=== PATIENT | female | born 1970 | race Two or more races ===

== ENCOUNTER 2024-11-08 20:07 | Emergency (ER) | payer MEDICAID, SELFPAY ==
[2024-11-08 20:18] VITALS: BP 136/92; PULSE 87; RESP 19; TEMP 36.9; O2SAT 98; BMI 57.9
[2024-11-08 20:21] VITALS: PULSE 93; RESP 20; O2SAT 98
--- NOTE | 2024-11-08 20:35 | XR_ITS ---
Examination: Knee, left , 3 views Technique: Knee AP, lateral, oblique 3 views Date and time of exam: 2025 hrs. Indications: Injury to the knee today, knee pain. Findings: No acute fracture No dislocation No foreign body Impression: No acute fracture
--- NOTE | 2024-11-08 20:37 | EDNOTE_ITS ---
Lower Extremity Injury RME/HPI General Chief Complaint: Extremity Injury, Lower Stated Complaint: KNEE PAIN Time Seen by Provider: 11/08/24 20:25 Source: patient Arrival date/time: 11/08/24 20:07 54-year-old female with a history of type 2 diabetes, hypertension presents to the emergency room with a chief complaint of left knee pain and tenderness after a fall that occurred 1 hour ago. Mode of arrival: ambulatory Limitations: no limitations Related Data Home Medications ?Medication ?Instructions ?Recorded ?Confirmed losartan 50 mg tablet 1 tab PO BID 05/28/22 10/01/22 metformin 500 mg tablet 500 mg PO BID 05/28/22 10/01/22 metoprolol tartrate 50 mg tablet 1 tab PO HS 05/28/22 10/01/22 cholecalciferol (vitamin D3) 50 50 mcg PO QDAY 07/30/22 09/30/22 mcg (2,000 unit) capsule (Vitamin D3) Previous Rx's ?Medication ?Instructions ?Recorded ciprofloxacin HCl 500 mg tablet 500 mg PO BID #14 tabs 10/01/22 (Cipro) hydrocodone 5 mg-acetaminophen 325 1 tab PO Q6H PRN pain #20 tabs 10/01/22 mg tablet ibuprofen 600 mg tablet 600 mg PO Q8H PRN fever or pain 11/08/24 #20 tabs Allergies Allergy/AdvReac Type Severity Reaction Status Date / Time No Known Allergies Allergy Verified 10/01/22 09:52 Review of Systems Review of Systems Systems Reviewed: All systems reviewed, normal except as documented Constitutional Constitutional: Reports system reviewed and no additional complaints, except as documented, Denies fatigue, Denies fever(s), Denies headache(s) and Denies weakness Eyes Eyes: Reports system reviewed and no additional complaints, except as documented, Denies blurry vision and Denies change in vision ENT Ears, Nose, Mouth, and Throat: Reports system reviewed and no additional complaints, except as documented, Denies otalgia, Denies headache(s), Denies nasal congestion, Denies throat swelling and Denies vertigo Cardiovascular Cardiovascular: Reports system reviewed and no additional complaints, except as documented, Denies chest pain, Denies dyspnea and Denies dyspnea on exertion Respiratory Respiratory: Reports system reviewed and no additional complaints, except as documented, Denies chest congestion, Denies cough, Denies dyspnea, Denies dyspnea on exertion and Denies wheezing Gastrointestinal Gastrointestinal: Reports system reviewed and no additional complaints, except as documented, Denies abdominal pain, Denies cramping, Denies nausea and Denies vomiting Genitourinary Genitourinary: Reports system reviewed and no additional complaints, except as documented Musculoskeletal Musculoskeletal: Reports system reviewed and no additional complaints, except as documented, Reports abnormal gait, Reports arthralgias, Denies back pain, Reports joint swelling and Reports limited range of motion Integumentary/Breasts Skin/Breast: Reports system reviewed and no additional complaints, except as documented and Denies wounds Neurologic Neurologic: Reports system reviewed and no additional complaints, except as documented, Reports abnormal gait, Denies confusion, Denies headache(s), Denies lack of coordination, Denies vertigo and Denies weakness Psychiatric Psychiatric: Reports system reviewed and no additional complaints, except as documented, Denies anxiety, Denies confusion, Denies depression, Denies paranoia, Denies suicidal ideation and Denies tactile hallucinations Endocrine Endocrine: Reports system reviewed and no additional complaints, except as documented and Denies fatigue Hematologic/Lymphatic Hematologic/Lymphatic: Reports system reviewed and no additional complaints, except as documented and Denies lymphadenopathy Allergic/Immunologic Allergic/Immunologic: Reports system reviewed and no additional complaints, except as documented, Denies throat swelling, Denies urticaria and Denies wheezing Past Medical History Past Medical History NEUROLOGIC: Positive Neurological Disorders and Migraine (ER VISIT FOR PAIN); Negative Seizures or Head Trauma CARDIAC: Positive Cardiac Disorders, Hypercholesterolemia (TAKES MED) and Hypertension (TAKES MED); Negative Congestive Heart Failure, Edema, Cellulitis or Varicose Veins RESPIRATORY: Negative Chronic Obstructive Pulmonary Disease (COPD), Asthma, Pneumonia, Tuberculosis or Sleep Apnea GASTROINTESTINAL: Positive Gastrointestinal Disorders, Gall Bladder Disease (NO PROC) and Obesity; Negative Hepatitis GENITOURINARY: Positive Genitourinary Disorders and Kidney Stones (FOR THIS PROC (HAD X2 PROC)); Negative Renal Disease REPRODUCTIVE: Positive Previous Pregnancies (X5) MUSCULOSKELETAL: Negative Musculoskeletal Disorders ENT: Negative Head Trauma ENDOCRINE: Positive Endocrine Disorders and Diabetes Mellitus Type 2 (TAKES PO MED); Negative Diabetes Mellitus Type 1 HEMATOLOGIC: Negative Blood Disorders or Sickle Cell Disease OTHER HISTORY: Negative Hospitalization, Autoimmune Disease, Shingles, Falls, Blood Transfusions, Blood Transfusion Reaction, Anesthesia Reactions, Organ Transplant, Chemotherapy, Radiation Therapy, MRSA, Chicken Pox, Measles, Mumps or Cancer Family History FAMILY HISTORY: Positive Family Psychiatric Problems (SISTER (DEPRESSION,ANXIETY)), Family Respiratory Disorders (SISTER (ASTHMA)), Family Cardiac Disorders (FATHER (FL)MOTHER ,BROTHER,SISTER (HTN)), Family Gastrointestinal Problems (SISTER (GALL BLADDER)), Family Cancer (FATHER (PROSTATE)) and Family Surgery (SISTERS,FATHER,MOTHER,BROTHER); Negative Family Anesthesia Reaction Surgical History SURGICAL: Positive Hysterectomy (KELY WITH CHANNING SALPING), Tubal Ligation and Section (X 4); Negative Cardiac Surgery, Pacemaker, Endocrine Surgery, Ear Surgery, Nephrectomy, Joint Replacement or Organ Transplant Social History SMOKING STATUS: Never smoker ED Exam General Limitations: Present no limitations General appearance: Present alert and in no apparent distress Head Head exam: Present atraumatic Eye Eye exam: Present normal appearance, PERRL and EOMI ENT ENT exam: Present normal exam, normal oropharynx and mucous membranes moist Neck Neck exam: Present normal inspection, full ROM and trachea midline Chest Chest inspection: Present normal inspection and symmetric chest wall rise Respiratory Respiratory exam: Present normal lung sounds bilaterally Cardiovascular Cardiovascular exam: Present regular rate, normal rhythm and normal heart sounds Abdominal Exam Abdominal exam: Present soft and normal bowel sounds Extremities Exam Extremities exam: Present normal inspection and full ROM Expanded Lower Extremity Exam Hip/Pelvis exam: Present normal inspection Upper leg exam: Present normal inspection Knee exam: Present tenderness, swelling and abrasion; Absent full ROM Gait: unable to bear weight Back Exam Back exam: Present normal inspection and full ROM Neurological Exam Neurological exam: Present alert, oriented X3 and CN II-XII intact Psychiatric Psychiatric exam: Present normal affect and normal mood Skin Skin exam: Present warm, dry, intact and normal color Course Quality Measures none Orders Category Date Time Status javad wrap [Splint / Immobilizer] STAT Care 11/08/24 20:38 Completed XR knee LT 3V Stat Exams 11/08/24 20:35 Completed Ketorolac Inj [Toradol Inj] Med 11/08/24 20:35 Discontinued 30 mg IM X1 ONE Vital Signs Vital signs: Vital Signs Temperature 98.4 F 11/08/24 20:18 Pulse Rate 87 11/08/24 20:18 Respiratory Rate 19 11/08/24 20:18 Blood Pressure 136/92 H 11/08/24 20:18 Pulse Oximetry (%) 98 11/08/24 20:18 Oxygen Delivery Method Room Air 11/08/24 20:18 O2 saturation 98% within normal limits Extremity Injury, Lower MDM Narrative MDM Narrative:: 54-year-old female with a history of type 2 diabetes, hypertension presents to the emergency room with a chief complaint of left knee pain and tenderness after a fall that occurred 1 hour ago. Clinically the patient appears nontoxic and in no apparent distress. Physical examination shows pain, tenderness, swelling to the left knee with palpation. Meera's test was negative. Patient is able to stand up but states there is a lot of pain when she takes steps. X-ray was completed and was negative for any acute fracture. The patient has a small abrasion to the left knee and wound care was completed. Patient was discharged and educated to follow-up with primary care provider and was educated that if the signs and symptoms continue she will need to follow-up for an outpatient MRI as there can be some ligament damage. Patient was discharged and educated to follow-up with primary care provider return to the emergency room for any evidence of worsening signs or symptoms Patient data External records reviewed:: [facility] previous records Clinical information provided by:: patient Social determinants that could affect healthcare access:: none Patient has the following chronic illnesses:: No chronic illness How is presenting disease/condition affected by chronic disease/condition?: no chronic disease Evaluation data The following diagnostics were reviewed and interpreted by me:: lab results and radiology exam(s) Lab and/or radiology exams considered but not ordered:: Labs and radiology exams considered and ordered Interpretation Summary: X-ray left knee-no acute fracture Medications / Prescriptions Medications or Prescriptions considered but not ordered:: Medication given Medication administrations:: Medication Administration History Discontinued Medications Ketorolac Tromethamine (Ketorolac Inj 60 Mg/2 Ml Vial) 30 mg IM X1 ONE Stop: 11/08/24 20:36 Last Admin: 11/08/24 21:05 Dose: 30 mg Documented By: Medication given Consultations Consultation(s) initiated? (list below): No Diagnosis Extremity Injury, Lower Differential Diagnosis: other (Left knee sprain and strain/left knee fracture) Most likely diagnosis given after review of the tests above:: Left knee sprain and strain Admission Indicated Admission indicated?: not indicated Admission Request Was there a request for admission?: No Disposition Plan Disposition Plan: Discharge Discharge Attestation Discharge Attestation: The patient and all family members were given an opportunity to ask questions and understood the discharge instructions. Discharge instructions specifically effects, indications for sooner follow up or return to the emergency department, and the expected course of current diagnosis. Patient condition: Stable Discharge Plan Plan Patient Disposition: HOME (Self Care) Disposition Comment: Stable Prescriptions/Referrals Prescriptions/Med Rec: New ibuprofen 600 mg tablet 600 mg PO Q8H PRN (Reason: fever or pain) Qty: 20 0RF No Action losartan 50 mg tablet 1 tab PO BID Patient Comments: TOME YONI TABLETA POR V A ORAL DOS VECES AL D A metformin 500 mg Tablet 500 mg PO BID metoprolol tartrate 50 mg tablet 1 tab PO HS Patient Comments: TOME YONI TABLETA TODOS LOS D WITH FOOD cholecalciferol (vitamin D3) [Vitamin D3] 50 mcg (2,000 unit) Capsule 50 mcg PO QDAY hydrocodone-acetaminophen 5-325 mg tablet 1 tab PO Q6H MDD 4 PRN (Reason: pain) Qty: 20 0RF ciprofloxacin HCl [Cipro] 500 mg tablet 500 mg PO BID Qty: 14 0RF Referrals: Floyd Rahman MD [Primary Care Provider] - In 1 week Problem List Clinical Impression: Knee sprain Patient/Caregiver Discharge Instructions Education Materials: ED Knee Sprain Additional Instructions: Mela un seguimiento con escalante proveedor de atenci?n primaria en las pr?ximas 24 a 48 horas. Se complet? la radiograf?a de escalante rodilla izquierda y fue negativa para fractura aguda. Si hay evidencia de signos o s?ntomas que empeoran, regrese a la kj de emergencias de inmediato. Print Language: Dutch Stand Alone Forms: Nettie Award Info., Patient Portal Info Letter PA/CHEF'S ASSISTANT Supervising Physician PA/CHEF'S ASSISTANT Supervising Physician: Dr. Bauer
[2024-11-08] MEDS: KETOROLAC INJ 60 MG/2 ML VIAL 30 MG IM (21:05)
== END 2024-11-08 23:01 | disposition home or self-care (01) ==
PROVIDERS: Emergency Provider Emergency Medicine; PCP Family Medicine
DX: S83.92XA Sprain of unspecified site of left knee, initial encounter (principal); I10 Essential (primary) hypertension; W19.XXXA Unspecified fall, initial encounter; E11.9 Type 2 diabetes mellitus without complications
CPT/HCPCS: 73562; 96372; 99283; J1885

== ENCOUNTER → 2024-11-22 | Outpatient (CLI) | payer MEDICAID, SELFPAY ==
--- NOTE | 2024-11-22 17:00 | XR_ITS ---
Exam: MRI knee without contrast, left Date and time of exam: November 22, 2024 1730 hours INDICATIONS: Patient fell a few weeks ago with injury to the knee, knee pain Technique: Multiple axial, coronal, and sagittal sections on the knee have been obtained. T2-Weighted sagittal, fat-suppressed images, TR 3,500, TE 62, T2 weighted coronal fat-saturated images, TR 3,500, TE 62 Proton density sagittal sections, TR 1800, TE 31. T-1 weighted coronal images, TR 524, TE 13.0 Findings: Medial meniscus anterior horn is intact. Medial meniscus, body horizontal linear tear communicating inner margin. Posterior horn medial meniscus horizontal linear tear communicating inner margin. Lateral meniscus anterior horn is intact Lateral meniscus, body is intact Posterior horn lateral meniscus is intact Anterior cruciate ligament appears intact. Posterior cruciate ligament appears intact. Knee effusion is small. Quadriceps and patellar tendons appear intact. Significant prepatellar edema as well as fluid collection prepatellar at least 10 cm transverse dimension AP dimension 9 mm cephalocaudad dimension 5 cm There is no evidence of tendinosis. Inflammatory change or fracture of Hoffa's fat pad is not seen. Medial patellar facet demonstrates moderate thinning. Lateral patellar facet cartilage demonstrates moderate thinning. Trochlear cartilage demonstrates moderate thinning. Marrow signal increased in the lateral femoral condyle posteriorly. Medial collateral ligament appears intact. No meniscocapsular separation is seen. Illiotibial band and fibular collateral ligament are intact. Biceps femoris tendons appear intact. Medial femoral condylar articular cartilage demonstrates moderate thinning. Lateral femoral condylar articular cartilage demonstratesmoderate thinning. Tibial plateau cartilage demonstrates moderate thinning. Impression: Horizontal linear tears body and posterior horn medial meniscus Fluid collection prepatellar
== END | disposition home or self-care (01) ==
PROVIDERS: PCP Physician Assistant; Referring Provider Physician Assistant; Visit Provider Physician Assistant
DX: S83.242A Other tear of medial meniscus, current injury, left knee, initial encounter (principal); W19.XXXA Unspecified fall, initial encounter
CPT/HCPCS: 73721

== ENCOUNTER 2025-02-15 09:12 | Outpatient (AMB) | payer MEDICAID, SELFPAY ==
--- NOTE | 2025-02-15 09:34 | PD.ORTHCLVIS ---
Vital signs 02/15/25 09:35 Height 1.57 m Height Method Stated Weight 145.178 kg Weight Measurement Method Standing Scale BMI 58.8 BP 137/84 H Blood Pressure Source Automatic Cuff Blood Pressure Location Right Upper Arm Position Sitting Respiration 20 Pulse 80 Pulse Source Monitor Temp 96.9 F Temp Source Temporal Artery Scan Pulse Oximetry (%) 97 Oxygen Delivery Method Room Air Med/Allergies Allergies & Medications Allergies No Known Allergies Allergy (Verified 02/15/25 09:36) Medication Reconciliation losartan 50 mg tablet 1 tab PO BID 05/28/22 [History Confirmed 02/15/25] metoprolol tartrate 50 mg tablet 1 tab PO HS 05/28/22 [History Confirmed 02/15/25] tirzepatide 2.5 mg/0.5 mL subcutaneous pen injector (Mounjaro) 2.5 mg subcut QWEEK 02/15/25 [History Confirmed 02/15/25] Exam Exam Patient is in no acute distress and is cooperative with the examination today. Breathing is nonlabored. In no respiratory distress. Bilateral extremities were evaluated and demonstrates sensation intact to light touch. Palpable pedal pulses are present. No significant edema is present. Bilateral hips were examined. The patient has no pain with log roll of the hips. Internal rotation to 30 degrees and external rotation to 30 degrees is painless. Negative FADIR. The left knee was examined. The left knee is in varus alignment. Range of motion from 0-115 degrees. Knee is stable to varus and valgus as well as AP translation with <5mm. Patient has a negative McMurrays. There is no pain with patellofemoral compression and no crepitus noted. The knee is tender to palpation medially. The right knee was also examined. The right knee is in varus alignment. Range of motion from 0-120 degrees. Knee is stable to varus and valgus as well as AP translation with <5mm. Patient has a negative McMurrays. There is no pain with patellofemoral compression and no crepitus noted. The knee is tender to palpation medially. Assessment and Plan Problem List (1) Degenerative arthritis of knee, bilateral: Status: Acute Plan: Patient is a 54-year-old female with bilateral knee painA nd likely arthritis versus back pain. We discussed that her MRI demonstrates a posterior horn medial meniscus tear which is relatively normal for age. We would treat this nonoperatively with anti-inflammatories. I would like to see weightbearing x-rays. We also discussed weight loss in great detail Office Procedures GNS Level of Care Nursing/Assessment Patient Status: Established Patient Nursing Assessment/Reassesment: Medication Reconciliation, Update PMH in EMR and Vital Signs Coordination of Care: Complex Care and Chronic Disease 1-5, Education Complex Pt/Fam, Consent,records obtained, informed consent, Lab and Imaging orders, Results/Orders obtained and Staff clarify orders Special Needs: Language special needs Established Patient Charge Established Patient Point Assignment: 110 Established Patient Point Charge: EP Level 3 (80-115) MA Intake Visit Data Collection New Patient or Established: Established Patient (seen at 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 PCP or OBGYN visit in last 3 months: Yes Hx Now: No Do You Feel Safe at Home: Yes Authorities Contacted: N/A Questionairres Past Medical History Past Medical History Have you ever been diagnosed with any of the following: Neurological Problems Seizures: No Migraine: Yes (ER VISIT FOR PAIN) Head Trauma: No Cardiology Problems Hypercholesterolemia: Yes (TAKES MED) Congestive Heart Failure: No Edema: No Cellulitis: No Hypertension: Yes (TAKES MED) Varicose Veins: No Respiratory Problems Chronic Obstructive Pulmonary Disease (COPD): No Asthma: No Pneumonia: No Tuberculosis: No Sleep Apnea: No Stomache/Intestinal Problems Hepatitis: No Gall Bladder Disease: Yes (NO PROC) Obesity: Yes Genital/Urinary Problems Renal Disease: No Kidney Stones: Yes (FOR THIS PROC (HAD X2 PROC)) Reproductive Problems Previous Pregnancies: Yes (X5) Endocrine Problems Diabetes Mellitus Type 1: No Diabetes Mellitus Type 2: Yes (TAKES PO MED) Blood Problems Sickle Cell Disease: No Other Problems Hospitalization: No Shingles: No Falls: No Blood Transfusions: No Blood Transfusion Reaction: No Anesthesia Reactions: No Organ Transplant: No Chemotherapy: No Radiation Therapy: No MRSA: No Chicken Pox: No Measles: No Mumps: No Cancer: No Surgical History Hysterectomy: Yes (KELY WITH CHANNING SALPING) Pacemaker: No Subjective Visit Visit for: new patient and knee Immunization / Flu Flu Vaccine in the Last 12 Months: Yes Flu Vaccine Exclusion Criteria: Already Received History of Present Illness Chief complaint: BILATERAL KNEE PAIN Date of injury / onset of symptoms: FELL ON 11/11 Jayce is a morbidly obese 54-year-old female with bilateral back and pain that radiates to her knee. This been ongoing for 4 months after a fall. She reports that there is significantly numbness and tingling As well. Personal History Red flag PMH: BMI and none (DIABETIC) BMI Counceling provided: Yes Pain Pain level (0-10): 10 Pain location: outside (lateral) and anterior Pain quality: sharp, dull and aching Pain timing: increases with activity Associated signs & symptoms: numbness Ambulatory data Ambulatory device: none Treatments Improvement with previous injections: No Improvement with PT: No Improvement with NSAIDS: no Review of Systems Review of Systems: All systems negative unless otherwise noted in HPI.
[2025-02-15 09:35] VITALS: BP 137/84; PULSE 80; RESP 20; TEMP 36.1; O2SAT 97; BMI 58.8
--- NOTE | 2025-02-15 09:41 | XR_ITS ---
Examination: Bilateral knees 2 views Right lateral knee left lateral knee 2 views Right axial knee left axial knee 2 views TECHNIQUE: Bilateral AP knees standing single view, bilateral PA knees standing single view flexion Standing right lateral knee left lateral knee 2 views Right axial knee left axial knee 2 views total 6 views Exam date and time: February 15, 2025 1029 hours INDICATIONS: Bilateral knee pain after falling November 08, 2024 FINDINGS: Moderate osteopenia Advanced narrowing medial joint space right knee Mild to moderate osteoarthritis right patellofemoral joint Mild osteoarthritis lateral joint space Moderate narrowing medial joint space left knee Moderate narrowing lateral patellofemoral joint left knee No fracture or dislocation IMPRESSION: Advanced narrowing medial joint space right knee Mild to moderate osteoarthritis right patellofemoral joint Moderate narrowing medial joint space left knee Moderate narrowing lateral patellofemoral joints left knee
== END 2025-02-15 09:48 | disposition home or self-care (01) ==
LOC: HODSRG 09:12
PROVIDERS: PCP Physician Assistant; Referring Provider Physician Assistant; Supervising Provider Orthopaedic Surgery Adult Reconstructive Orthopaedic Surgery; Visit Provider Orthopaedic Surgery Adult Reconstructive Orthopaedic Surgery
DX: M17.0 Bilateral primary osteoarthritis of knee (principal); M25.562 Pain in left knee; M25.561 Pain in right knee; E66.01 Morbid (severe) obesity due to excess calories; Z68.43 Body mass index [BMI] 50.0-59.9, adult; M54.9 Dorsalgia, unspecified; R20.0 Anesthesia of skin; R20.2 Paresthesia of skin; I10 Essential (primary) hypertension; E78.00 Pure hypercholesterolemia, unspecified; E11.9 Type 2 diabetes mellitus without complications
CPT/HCPCS: 73564; 99213; G0463

== ENCOUNTER 2025-03-01 10:45 | Outpatient (AMB) | payer MEDICAID, SELFPAY ==
--- NOTE | 2025-03-01 10:54 | PD.ORTHCLVIS ---
Vital signs 03/01/25 10:55 Height 1.57 m Height Method Stated Weight 143.562 kg Weight Measurement Method Standing Scale BMI 58.2 BP 130/61 Blood Pressure Source Automatic Cuff Blood Pressure Location Left Lower Arm Position Sitting Respiration 18 Pulse 73 Pulse Source Monitor Temp 97.6 F Temp Source Temporal Artery Scan Pulse Oximetry (%) 96 Oxygen Delivery Method Room Air Med/Allergies Allergies & Medications Allergies No Known Allergies Allergy (Verified 03/01/25 10:54) Medication Reconciliation losartan 50 mg tablet 1 tab PO BID 05/28/22 [History Confirmed 03/01/25] metoprolol tartrate 50 mg tablet 1 tab PO HS 05/28/22 [History Confirmed 03/01/25] tirzepatide 2.5 mg/0.5 mL subcutaneous pen injector (Mounjaro) 2.5 mg subcut QWEEK 02/15/25 [History Confirmed 03/01/25] Exam Exam Patient is in no acute distress and is cooperative with the examination today. Breathing is nonlabored. In no respiratory distress. Bilateral extremities were evaluated and demonstrates sensation intact to light touch. Palpable pedal pulses are present. No significant edema is present. Bilateral hips were examined. The patient has no pain with log roll of the hips. Internal rotation to 30 degrees and external rotation to 30 degrees is painless. Negative FADIR. The left knee was examined. The left knee is in varus alignment. Range of motion from 0-115 degrees. Knee is stable to varus and valgus as well as AP translation with <5mm. Patient has a negative McMurrays. There is no pain with patellofemoral compression and no crepitus noted. The knee is tender to palpation medially. The right knee was also examined. The right knee is in varus alignment. Range of motion from 0-120 degrees. Knee is stable to varus and valgus as well as AP translation with <5mm. Patient has a negative McMurrays. There is no pain with patellofemoral compression and no crepitus noted. The knee is tender to palpation medially. Xrays demonstrate significant joint space narrowing medially worse on the right Assessment and Plan Problem List (1) Degenerative arthritis of knee, bilateral: Status: Acute Plan: Patient is a 54-year-old female with bilateral knee pain. She has significant arthritis of both knees as well as back pain. Thank you we discussed weight loss in great detail. We also discussed that we can try injections if the pain gets worse. She reports that she is doing well does not want injections at this time. We will see her back on an as-needed basis Office Procedures GNS Level of Care Nursing/Assessment Patient Status: Established Patient Nursing Assessment/Reassesment: Medication Reconciliation, Update PMH in EMR and Vital Signs Coordination of Care: Complex Care and Chronic Disease 1-5, Education Complex Pt/Fam, Consent,records obtained, informed consent, Results/Orders obtained and Staff clarify orders Special Needs: Language special needs Established Patient Charge Established Patient Point Assignment: 95 Established Patient Point Charge: EP Level 3 (80-115) MA Intake Visit Data Collection New Patient or Established: Established Patient (seen at [facility] within 3 years) Reason for Visit:: XRAY RESULTS/BL KNEE PAIN Seen by Clinical Staff ONLY (RN/MA): No Legal Examiner Required: Yes PCP or OBGYN visit in last 3 months: Yes Hx Now: No Do You Feel Safe at Home: Yes Authorities Contacted: N/A Questionairres Past Medical History Past Medical History Have you ever been diagnosed with any of the following: Neurological Problems Seizures: No Migraine: Yes (ER VISIT FOR PAIN) Head Trauma: No Cardiology Problems Hypercholesterolemia: Yes (TAKES MED) Congestive Heart Failure: No Edema: No Cellulitis: No Hypertension: Yes (TAKES MED) Varicose Veins: No Respiratory Problems Chronic Obstructive Pulmonary Disease (COPD): No Asthma: No Pneumonia: No Tuberculosis: No Sleep Apnea: No Stomache/Intestinal Problems Hepatitis: No Gall Bladder Disease: Yes (NO PROC) Obesity: Yes Genital/Urinary Problems Renal Disease: No Kidney Stones: Yes (FOR THIS PROC (HAD X2 PROC)) Reproductive Problems Previous Pregnancies: Yes (X5) Endocrine Problems Diabetes Mellitus Type 1: No Diabetes Mellitus Type 2: Yes (TAKES PO MED) Blood Problems Sickle Cell Disease: No Other Problems Hospitalization: No Shingles: No Falls: No Blood Transfusions: No Blood Transfusion Reaction: No Anesthesia Reactions: No Organ Transplant: No Chemotherapy: No Radiation Therapy: No MRSA: No Chicken Pox: No Measles: No Mumps: No Cancer: No Surgical History Hysterectomy: Yes (KELY WITH CHANNING SALPING) Pacemaker: No Subjective Visit Visit for: follow up visit, knee (BILATERAL) and x-rays (RESULTS) Immunization / Flu Flu Vaccine in the Last 12 Months: No Flu Vaccine Exclusion Criteria: No Exclusion Criteria History of Present Illness Chief complaint: BILATERAL KNEE PAIN Date of injury / onset of symptoms: FELL ON 11/11 Jayce is a morbidly obese 54-year-old female with bilateral back and pain that radiates to her knee. This been ongoing for 4 months after a fall. She reports that there is significantly numbness and tingling As well. She is trying to lose weight. She reports the NSAIDs have been helping as well Personal History Red flag PMH: BMI BMI Counceling provided: Yes Pain Pain level (0-10): 4 Pain duration: ON AND OFF Pain location: inside (medial) and anterior Pain quality: aching Pain timing: increases with activity Associated signs & symptoms: none Ambulatory data Ambulatory device: none Treatments Improvement with previous injections: No Improvement with PT: No Improvement with NSAIDS: yes Review of Systems Review of Systems: All systems negative unless otherwise noted in HPI.
[2025-03-01 10:55] VITALS: BP 130/61; PULSE 73; RESP 18; TEMP 36.4; O2SAT 96; BMI 58.2
== END 2025-03-01 11:08 | disposition home or self-care (01) ==
LOC: HODSRG 10:45
PROVIDERS: PCP Physician Assistant; Referring Provider Physician Assistant; Supervising Provider Orthopaedic Surgery Adult Reconstructive Orthopaedic Surgery; Visit Provider Orthopaedic Surgery Adult Reconstructive Orthopaedic Surgery
DX: M17.0 Bilateral primary osteoarthritis of knee (principal); M25.562 Pain in left knee; M25.561 Pain in right knee; M54.9 Dorsalgia, unspecified; I10 Essential (primary) hypertension; E11.9 Type 2 diabetes mellitus without complications; E78.00 Pure hypercholesterolemia, unspecified; E66.01 Morbid (severe) obesity due to excess calories; Z68.43 Body mass index [BMI] 50.0-59.9, adult
CPT/HCPCS: 99213; G0463